=== PATIENT | male | born 1970 | race Caucasian/White ===

== ENCOUNTER 2020-06-14 12:39 | Emergency (ER) | payer SELFPAY ==
[~2020-06-14 12:39] MED LIST: IBUPROFEN600 MG PO; NORCO 5-325 TA1 EACH PO
[2020-06-14 15:00] LABS: HEMOGLOBIN 15.6 gm/dl (14.0-17.5); RED BLOOD COUNT 5.16 M/UL (4.20-5.50)
[2020-06-14 15:45] LABS: BUN/CREATININE RATIO 10 (0-10)
[2020-06-14] MEDS ORDERED: VIBRAMYCIN100 MG PO (15:47)
[2020-06-14] MEDS ORDERED: TESSALON PERLE100 MG PO (15:47)
== END 2020-06-14 17:35 | disposition home or self-care (01) ==
LOC: ER1 12:39
PROVIDERS: Physician Assistant
DX: U07.1 COVID-19 (principal); J12.82 Pneumonia due to coronavirus disease 2019
CPT/HCPCS: 0240U; 71045; 80053; 85025; 96374; 99283; J2405; J7030